=== PATIENT | female | born 1975 | race Caucasian/White ===

== ENCOUNTER 2024-01-22 16:47 | Emergency (ER) | payer MEDICARE ==
[2024-01-22] MEDS ORDERED: Sodium Chloride 0.9% 1,000 ML IV SCH (17:00)
[2024-01-22] MEDS: Naloxone 0.4 MG/ML SDV IVPUSH ONE ×2 (17:05→17:13)
[2024-01-22 17:31] LABS: BASOPHILS PERCENT AUTO 0.4 % (0.0-1.0); EOSINOPHILS PERCENT AUTO 0.8 % (0.0-6.0); HEMATOCRIT 41.1 % (37.0-47.0); HEMOGLOBIN 13.5 gm/dl (12.0-16.0); IMMATURE GRAN ABSOLUTE AUTO 0.01 K/mm3 (0.00-0.05); IMMATURE GRAN PERCENT AUTO 0.2 % (0.0-0.4); LYMPHOCYTES ABSOLUTE AUTO 1.6 K/mm3 (1.0-4.8); MEAN CORPUSCULAR HEMOGLOBIN 29.2 pg (28.0-32.0); MEAN CORPUSCULAR HGB CONC 32.8 g/dl (32.0-36.0); MEAN PLATELET VOLUME 10.5 fl (9.4-12.3); MONOCYTES ABSOLUTE AUTO 0.3 K/mm3 (0.0-0.8); MONOCYTES PERCENT AUTO 5.7 % (0.0-8.0); NEUTROPHILS PERCENT AUTO 60.9 % (41.0-71.0); PLATELET COUNT,PLT 188 K/mm3 (150-400); RED BLOOD CELL COUNT 4.62 M/mm3 (4.10-5.30); WHITE BLOOD CELL COUNT,WBC 4.87 K/mm3 (3.9-11.3)
[2024-01-22 17:45] LABS: HEMOGLOBIN A1C 8.7 %
[2024-01-22] MEDS: Naloxone 0.4 MG/ML SDV ONE ×3 (17:45→17:47)
[2024-01-22 17:49] LABS: INR 1.02; PROTHROMBIN TIME 10.8 SECONDS (9.7-12.0)
[2024-01-22 17:50] LABS: PTT,PARTIAL THROMBOPLSTIN TIME 22.2 SECONDS (21.7-31.4)
[2024-01-22 18:01] LABS: LACTIC ACID 2.1 mmol/L (0.4-2.0)
[2024-01-22 18:02] LABS: ALANINE AMINOTRANSFERASE,ALT 31 U/L (14-59); ALBUMIN 3.6 g/dl (3.4-5.0); ALKALINE PHOSPHATASE 99 U/L (46-116); ANION GAP 11.5 (5-15); ASPARTATE AMNIOTRANSFERASE,AST 21 U/L (15-37); BILIRUBIN TOTAL 0.4 mg/dL (0.2-1.0); BLOOD UREA NITROGEN,BUN 13 mg/dL (7-18); BUN/CREATININE RATIO 14.4 (14-18); C-REACTIVE PROTEIN 0.18 mg/dL (<0.30); CARBON DIOXIDE,CO2 28 mEq/L (21-32); CHLORIDE,CL 102 mEq/L (98-107); CREATININE 0.9 mg/dL (0.55-1.02); ESTIMATED GFR 79 mL/min (>60); GLUCOSE RANDOM 194 mg/dL (70-99); MAGNESIUM 1.7 mg/dL (1.8-2.4); POTASSIUM,K 3.5 mEq/L (3.5-5.1); PROTEIN TOTAL,TP 7.2 g/dl (6.4-8.2); SODIUM,NA 138 mEq/L (136-145)
[2024-01-22 18:06] LABS: TROPONIN I HIGH SENSITIVITY 79 pg/mL (<=51)
[2024-01-22] MEDS: Acetaminophen 325 MG Tab PO ONE (18:27)
== END 2024-01-22 21:19 | disposition home or self-care (01) ==
LOC: JD.ED 16:47
DX: T40.2X1A Poisoning by other opioids, accidental (unintentional), initial encounter (principal); Z21 Asymptomatic human immunodeficiency virus [HIV] infection status; I10 Essential (primary) hypertension; E78.00 Pure hypercholesterolemia, unspecified; Z79.899 Other long term (current) drug therapy; Z88.8 Allergy status to other drugs, medicaments and biological substances
CPT/HCPCS: 36415; 70450; 80053; 80307; 83036; 83605; 83735; 83880; 84484; 85025; 85610; 85730; 86140; 93005; 96374; 99285; A9270; J2310